=== PATIENT | female | born 1995 | race Caucasian/White ===

== ENCOUNTER 2018-01-26 02:52 | Emergency (ER) | payer OTHER ==
[2018-01-26 03:14] VITALS: BMI 29.2
--- NOTE | 2018-01-26 03:22 | PDOC ---
Attending Attestation - Resident Resident Name: AmauryLaurent - ED Attending Attestation I have performed the following: I have examined & evaluated the patient, The case was reviewed & discussed with the resident, I agree w/resident's findings & plan - HPI HPI: 01/26/18 05:04 Pt comes with postnasal drip and she states that she is unable to sleep because of congestion. - Physicial Exam PE: 01/26/18 03:31 Agree with resident exam - Medical Decision Making 01/26/18 05:03 Patient Name: KEYUR LR THIS IS A PRELIMINARY REPORT FROM [facility] CL[facility] DATE OF SERVICE: 2018-01-26 04:23:35 IMAGES: [id number] EXAM: CT MAXILLOFACIAL WITHOUT CONTRAST TECHNIQUE: One or more of the following dose reduction techniques were used: Automatic exposure control, adjustment of the mA and/or kV according to patient size, use of iterative reconstruction technique. Axial images through the facial bones with multiplanar reconstructions. Bone and soft tissue windows were reviewed. HISTORY: Rule out sinusitis. COMPARISON: None. FINDINGS: Maxillofacial bones: Appear normally mineralized. No acute fracture or dislocation seen. Patient contains 3 unerupted wisdom teeth. Orbits: Grossly unremarkable. Sinuses and mastoids: Ethmoid air cells show mild mucosal thickening. Left sphenoid sinus shows some minimal debris and mild mucosal thickening. Right sphenoid sinus shows minimal mucosal thickening inferiorly. Maxillary sinuses show mild mucosal thickening inferiorly.. Osteomeatal complexes are patent. Nasal fossa: Grossly unremarkable. Visualized brain and calvarium:Grossly unremarkable. Other findings: Left nasal ornamentation is noted. IMPRESSION: 1. Only minimal to mild mucosal thickening in the paranasal sinuses as above. 01/26/18 05:03 Pt has sinusitis and she will follow with ENT
[2018-01-26] MEDS ORDERED: PSEUDOEPHEDRINE HCL 60 MG TABLET ONE (03:45)
[2018-01-26] MEDS ORDERED: PSEUDOEPHEDRINE HCL 60 MG TABLET PO ONE (03:45)
--- NOTE | 2018-01-26 04:31 | PDOC ---
History of Present Illness - General Chief Complaint: Allergic Reaction Stated Complaint: ALLERGIES Time Seen by Provider: 01/26/18 03:22 History Source: Patient Exam Limitations: No Limitations - History of Present Illness Initial Comments: 01/26/18 04:23 22 yo F with no pertinent past medical history presenting to emergency department with 1 month of rhinitis, ocular pruritus posterior nasal drip, and coughing. Per the patient, this has never happened in the past and began having daily allergic like symptoms but with no known cause. She tried flonase for 1 day and stated it did not help. She is presenting today because "I couldnt take it anymore" after trying benadryl for the first time a few hours prior to presentation. She denies the following: fever, chills, visual changes, hemoptysis, night sweats, malaise, chest pain, nausea/vomiting, throat swelling/ pain, and ear pain. She currently does not have a primary medical doctor. Denies the following: abdominal pain, dysuria, hematuria, hematochezia, melena, and leg pain/swelling. Pmhx: Refer to above Shx: None Meds: None Allergies: NKDA. Denies environmental allergies Social: Denies tobacco, alcohol, and substance abuse. Past History - Past Medical History Allergies/Adverse Reactions: Allergies Allergy/AdvReac Type Severity Reaction Status Date / Time No Known Allergies Allergy Verified 01/26/18 03:10 Home Medications: Ambulatory Orders NK [No Known Home Medication] 01/26/18 - Suicide/Smoking/Psychosocial Hx Smoking History: Never smoked Have you smoked in the past 12 months: No Information on smoking cessation initiated: No Hx Alcohol Use: No Drug/Substance Use Hx: No Review of Systems - Review of Systems Able to Perform ROS?: Yes Is the patient limited Faroese proficient: No Constitutional: No: Chills, Diaphoresis, Fever, Malaise, Night Sweats, Weakness HEENTM: No: Recent change in vision, Ear Pain, Nose Pain, Throat Pain, Throat Swelling, Mouth Pain, Difficulty Swallowing Respiratory: Yes: Cough. No: Shortness of Breath, SOB with Exertion, Hemoptysis Cardiac (ROS): No: Chest Pain, Edema, Lightheadedness, Palpitations, Syncope, Chest Tightness ABD/GI: No: Constipated, Diarrhea, Nausea, Poor Fluid Intake, Rectal Bleeding, Vomiting, Tarry Stools : No: Burning, Dysuria, Frequency, Hematuria Musculoskeletal: No: Back Pain, Joint Pain, Muscle Pain, Neck Pain Integumentary: No: Rash Neurological: No: Headache, Numbness, Paresthesia, Seizure, Unsteady Gait, Ataxia Psychiatric: No: Anxiety Endocrine: No: Unexplained Weight Loss *Physical Exam - Vital Signs Last Vital Signs Temp Pulse Resp BP Pulse Ox 97.8 F 75 18 141/85 100 01/26/18 03:11 01/26/18 03:11 01/26/18 03:11 01/26/18 03:11 01/26/18 03:11 - Physical Exam General Appearance: Yes: Nourished, Appropriately Dressed HEENT: positive: EOMI, NEEL, Normal Voice, Symmetrical, TMs Normal, Pharynx Normal, Nasal Congestion (erythematous mucosa bilaterally in nares. Fully obstructing nasal polyp in right nare). negative: Muffled/Hoarse voice, Pharyngeal Erythema, Tonsillar Exudate, Tonsillar Erythema, Sinus Tenderness, TM Bulging, TM Dull, TM Erythema, Excessive drooling Neck: positive: Trachea midline. negative: Lymphadenopathy (R), Lymphadenopathy (L) Respiratory/Chest: positive: Lungs Clear, Normal Breath Sounds. negative: Chest Tender, Respiratory Distress, Accessory Muscle Use Cardiovascular: positive: Regular Rhythm, Regular Rate, S1, S2. negative: Systolic Murmur Gastrointestinal/Abdominal: positive: Normal Bowel Sounds, Flat, Soft. negative : Tender, Pulsatile Mass, Distended, Rebound, Hernia Musculoskeletal: positive: Normal Inspection. negative: CVA Tenderness Extremity: positive: Normal Capillary Refill, Normal Inspection, Normal Range of Motion. negative: Tender Integumentary: positive: Normal Color, Dry, Warm. negative: Erythema, Hives, Petechiae, Rash Neurologic: positive: Fully Oriented, Alert, Normal Mood/Affect, Normal Response , Motor Strength 5/5 ED Treatment Course - ADDITIONAL ORDERS Additional order review: Laboratory Results 01/26/18 03:30 Urine HCG, Qual Negative - Medications Given in the ED: ED Medications Discontinued Medications Generic Name Dose Route Start Last Admin Trade Name Freq PRN Reason Stop Dose Admin Pseudoephedrine HCl 60 mg 01/26/18 03:45 01/26/18 03:47 Sudafed - PO 01/26/18 03:46 60 mg ONCE ONE Administration Medical Decision Making - Medical Decision Making 01/26/18 04:34 22 yo F with no pertinent past medical history presenting to emergency department with 1 month of rhinitis, ocular pruritus posterior nasal drip, and coughing Initial vitals: Initial Vital Signs Temp Pulse Resp BP Pulse Ox 97.8 F 75 18 141/85 100 01/26/18 03:11 01/26/18 03:11 01/26/18 03:11 01/26/18 03:11 01/26/18 03:11 Work up: ddx: allergic rhinitis vs sinusitis vs pharyngitis vs otitis media/externa work up: urine and ct sinuses. CT results show ethoid air cells show mild mucosal thickening, left sphenoid sinus shows minimal debris and mild mucosal thickening, right sphenoid sinus shows minimal sinus shows minimal mucosal thickening inferiorly. Maxillary sinuses show mild mucosal thickening inferiorly. likely allergic rhinitis given the hx and PE. The patients has an obstructive nasal polyp and ssx consistent with allergic rhinitis. pt will attain a PMD and will be referred to Dr. Franz. She understands the plan and agrees to it. Dispo: discharge 01/26/18 05:04 *DC/Admit/Observation/Transfer Diagnosis at time of Disposition: Nasal polyp Allergic rhinitis Qualifiers: Allergic rhinitis trigger: unspecified Allergic rhinitis seasonality: unspecified Qualified Code(s): J30.9 - Allergic rhinitis, unspecified - Discharge Dispostion Disposition: HOME Decision to Admit order: No - Referrals Referrals: [facility] [place] [facility] [place] [Provider Group] Elias Franz MD [Staff Physician] - - Patient Instructions Printed Discharge Instructions: DI for Allergic Rhinitis Additional Instructions: You have been seen in the emergency department for the evaluation of your nose irritation. Based on the CT, history, and physical exam it appears you have thickening of the mucosa in the nares. We referred you to a primary medical doctor and Dr. Franz, our ENT specialist. Please contact them within 48-72 hours after discharge. Please return to the emergency department if you develop fevers , nasal discharge with worsening headaches, nausea/vomiting, and shortness of breath. Thank you. - Post Discharge Activity Forms/Work/School Notes: Back to Work
[2018-01-26 05:25] VITALS: BP 119/69; PULSE 74; TEMP 98.2
== END 2018-01-26 05:25 | disposition home or self-care (01) ==
LOC: JER 02:52
DX: J30.9 Allergic rhinitis, unspecified (principal); J33.8 Other polyp of sinus
CPT/HCPCS: 70486-TC; 84703; 99281-25